=== PATIENT | female | born 1955 | race Caucasian/White ===

== ENCOUNTER 2020-09-25 11:51 | Outpatient (CLI) | payer BC ==
[2020-09-25 13:02] LABS: Hemoglobin 13.4 g/dL (12.0-15.5); Mean Corpuscular HGB CONC 33.6 g/dL (32.0-36.0); Mean Corpuscular Hemoglobin 30.4 pg (27.0-33.0); Mean Corpuscular Volume 90.5 fl (81.6-98.3); Mean Platelet Volume 9.6 fl (7.4-10.4); Platelet Count 247 10x3/uL (150-450); RBC Distribution Width 12.1 % (11.5-14.5); Red Blood Cell (RBC) Count 4.41 10x6/uL (3.90-5.03); White Blood Cell (WBC) Count 6.4 10x3/uL (3.5-10.5)
[2020-09-25 13:16] LABS: Anion Gap 13 mmol/L (10-20); BUN (Urea Nitrogen) 8 mg/dL (9.8-20.1); Calc. Creatinine Clearance 0 mL/min (70-130); Calcium 9.7 mg/dL (7.8-10.44); Carbon Dioxide 30 mmol/L (23-31); Chloride 104 mmol/L (98-107); Glucose 97 mg/dL (80-115); Potassium 3.9 mmol/L (3.5-5.1); Sodium 143 mmol/L (136-145)
== END 2020-09-25 11:52 | disposition home or self-care (01) ==
LOC: LABBT 11:51
PROVIDERS: ATTEND Neurological Surgery
DX: Z01.818 Encounter for other preprocedural examination (principal); M54.12 Radiculopathy, cervical region
CPT/HCPCS: 80048; 85027; 93005; 93010

== ENCOUNTER 2020-09-30 07:08 | Observation (INO) | payer BC ==
[2020-09-30] MEDS ORDERED: Morphine 4 MG/ML VIAL ONE (08:53)
[2020-09-30] MEDS ORDERED: Fentanyl 100 MCG/2 ML VIAL ONE ×4 (10:06→13:32)
[2020-09-30] MEDS ORDERED: Rocuronium Bromide 10 MG/ML (10ML VIAL) ONE (10:36)
[2020-09-30] MEDS ORDERED: Ondansetron PF 4 MG/2 ML Vial ONE (10:36)
[2020-09-30] MEDS ORDERED: PROPOFOL 200 MG/20 ML VIAL ONE (10:36)
[2020-09-30] MEDS ORDERED: Dexamethasone 20 MG/5 ML VIAL ONE (10:36)
[2020-09-30] MEDS ORDERED: Lidocaine 1% PF 5 ML VIAL ONE (10:36)
[2020-09-30] MEDS ORDERED: ePHEDrine Sulfate 50 MG/10 ML VIAL ONE (10:36)
[2020-09-30] MEDS ORDERED: SUGAMMADEX SODIUM 200 MG/2 ML VIAL ONE (11:20)
[2020-09-30] MEDS ORDERED: Promethazine HCl 25 MG/ML VIAL ONE (12:03)
[2020-09-30] MEDS ORDERED: Milk Of Magnesia 30 ML UDCUP PO PRN (13:15)
[2020-09-30] MEDS ORDERED: Morphine 2 MG/ML VIAL SLOW IVP PRN (13:15)
[2020-09-30] MEDS ORDERED: Promethazine HCl 25 MG/ML VIAL IM PRN (13:15)
[2020-09-30] MEDS ORDERED: diphenhydrAMINE 50 MG/ML VIAL IVP PRN (13:15)
[2020-09-30] MEDS ORDERED: Morphine 4 MG/ML VIAL SLOW IVP PRN (13:15)
[2020-09-30] MEDS ORDERED: Promethazine HCl 12.5 MG SUPP PR PRN (13:15)
[2020-09-30] MEDS ORDERED: Mag-Al 1200 mg/1200 mg/30 ML UDCUP PO PRN (13:15)
[2020-09-30] MEDS ORDERED: traMADol HCl 50 MG TAB PO PRN ×2 (13:15)
[2020-09-30] MEDS ORDERED: diphenhydrAMINE 25 MG CAP PO PRN (13:15)
[2020-09-30] MEDS ORDERED: tiZANidine HCl 4 MG TAB PO PRN (13:15)
[2020-09-30] MEDS ORDERED: Promethazine 25 MG TAB PO PRN (13:15)
[2020-09-30] MEDS ORDERED: Ondansetron PF 4 MG/2 ML Vial IVP PRN (13:17)
[2020-09-30 14:43] VITALS: BMI 28.3
[2020-09-30] MEDS: CEFAZOLIN 2 GM in Premix Bag 1 BAG IVPB SCH ×2 (15:31→23:05)
[2020-09-30] MEDS: Sodium Chloride 0.9% 1,000 ML IV SCH (15:32)
[2020-09-30] MEDS: oxyCODONE/Acetaminophen 5 mg/325 mg Tablet PO PRN ×2 (16:17→23:03)
[2020-09-30] MEDS: Gabapentin 400 MG CAP PO SCH ×2 (16:17→20:50)
[2020-09-30] MEDS: Carvedilol 3.125 MG TAB PO SCH (20:53)
[2020-09-30] MEDS ORDERED: traZODone HCl 50 MG TAB PO SCH (21:00)
[2020-10-01] MEDS: Sodium Chloride 0.9% 1,000 ML IV SCH (05:31)
[2020-10-01] MEDS: oxyCODONE/Acetaminophen 5 mg/325 mg Tablet PO PRN (05:41)
[2020-10-01 07:59] VITALS: TEMP 98.7
[2020-10-01] MEDS: Carvedilol 3.125 MG TAB PO SCH (08:41)
[2020-10-01] MEDS: Gabapentin 400 MG CAP PO SCH (08:41)
[2020-10-01] MEDS: CEFAZOLIN 2 GM in Premix Bag 1 BAG IVPB SCH (08:42)
[2020-10-01] MEDS ORDERED: Amlodipine 5 MG TAB PO SCH (09:00)
[2020-10-01 10:35] VITALS: BP 126/66
== END 2020-10-01 11:49 | disposition home or self-care (01) ==
LOC: SDC 07:08 → SURG B 11:36 → INTOOBSV 11:36
PROVIDERS: ADMIT Neurological Surgery; ATTEND Neurological Surgery
PROC: 0RG20A0 Fusion of 2 or more Cervical Vertebral Joints with Interbody Fusion Device, Anterior Approach, Anterior Column, Open Approach (ICD-10-PCS; principal; 2020-10-01)
PROC: 0RG2070 Fusion of 2 or more Cervical Vertebral Joints with Autologous Tissue Substitute, Anterior Approach, Anterior Column, Open Approach (ICD-10-PCS; 2020-10-01)
PROC: 0RT30ZZ Resection of Cervical Vertebral Disc, Open Approach (ICD-10-PCS; 2020-10-01)
DX: M54.12 Radiculopathy, cervical region (principal); I10 Essential (primary) hypertension; Z79.899 Other long term (current) drug therapy
CPT/HCPCS: 76000; 96374; 96375; 96376; C1713; C1776; G0378; J0690; J1100; J2270; J2405; J2550; J2704; J3010